=== PATIENT | female | born 1930 | race Caucasian/White ===

== ENCOUNTER 2018-01-16 18:58 | Emergency (ER) | payer OTHER, BC ==
[~2018-01-16] VITALS: Ht 149.9 cm; Wt 36.4 kg
[~2018-01-16 18:58] MED LIST: CARAFATE 11 GM/10 M1 PO
[2018-01-16] MEDS ORDERED: VALACYCLOVIR1000 MG PO (19:57)
[2018-01-16 20:28] VITALS: BP 157/101
== END 2018-01-16 22:49 | disposition home or self-care (01) ==
LOC: ER 18:58
DX: B02.9 Zoster without complications (principal); F03.90 Unspecified dementia, unspecified severity, without behavioral disturbance, psychotic disturbance, mood disturbance, and anxiety; Z90.710 Acquired absence of both cervix and uterus; Z90.89 Acquired absence of other organs

== ENCOUNTER 2018-10-06 01:49 | Inpatient (IN) | payer OTHER, BC ==
[~2018-10-06] VITALS: Ht 149.9 cm; Wt 45.8 kg
--- NOTE | ~2018-10-06 | EMS ---
[address] [address] EMS Patient Care Report Name: LYNNETTE SANTIAGO Room #: 204-P ADM IN M.R.#: [id number] Admission: 10/06/18 Attend Phys: Kira Baldwin MD Discharge: Date of : 32 Report #: [id number] THIS REPORT FOR: //name// Report Transmitted: 10/08/2018 10:43 EMS Care Summary [facility] MED-ACT Incident [id number] @ 10/06/2018 01:19 Incident Location [address] [place] [address] Patient LYNNETTE SANTIAGO Female, 88 Years 1930 Patient Address [address] [place] [address] Patient History Dementia, Patient Allergies Aricept, Patient Medications Lisinopril, Buspirone, Zofran, Trazodone, Alprazolam, Chief Complaint seizure and rigid posture. Disposition Transported No Lights/[place] Reason Convulsions/Seizure Transported To [facility] Narrative Upon arrival pt was sitting on a wheelchair, presented w/o distress. Caregiver reported she was helping the pt to the bathroom and then all of the pt started [address] [address] EMS Patient Care Report Name: LYNNETTE SANTIAGO Room #: 204-P [facility] IN .R.#: [id number] Admission: 10/06/18 Attend Phys: Kira Baldwin MD Discharge: Date of : 32 Report #: [id number] shaking and looking to the ceiling with rigid posture. RN reported pt normally used the walker and always talks and laughs. Pt's eyes deviated to the L side and she was ignoring crew on the right who tried to make her pay attention. Pt did squeezed on both hands, pt had painful upon IV insertion. Pt did not talked to the crew or react with any questions. RN reported pt had flu like symptoms yesterday morning and vomited once. Pt was prescribed PO zofran by the facility doctor. LVO did not apply to the pt because pt did not react with crew or answer any question. Initial Vitals @01:40P: 58,SpO2: 97, @01:36P: 66,R: 18,BP: 176/90,Pain: 0/10,SpO2: 96, @01:27P: 63,R: 16,BP: 186/95,Pain: 0/10,GCS: 10,Glucose: 163,SpO2: 97,Revised Trauma: 11,SD Suspected: false Assessments @01:28MENTAL:Other,SKIN:No Abnormalities,HEENT:Eyes: Left Pupil: 5-mm,Eyes: Right Pupil: 5-mm,Head/Face: No Abnormalities,Neck/Airway: No Abnormalities,LUNG SOUNDS:General: No Abnormalities,Left Upper: No Abnormalities,Right Upper: No Abnormalities,Left Lower: No Abnormalities,Right Lower: No Abnormalities,ABDOMEN:General: No Abnormalities,Left Upper: No Abnormalities,Right Upper: No Abnormalities,Left Lower: No Abnormalities,Right Lower: No Abnormalities,PELVIS//GI:No Abnormalities,EXTREMITIES:Left Arm: No Abnormalities,Right Arm: No Abnormalities,Left Leg: No Abnormalities,Right Leg: No Abnormalities,PULSE:NEURO:No Abnormalities,@01:40MENTAL:SKIN:HEENT:LUNG SOUNDS:General: No Abnormalities,Left Upper: No Abnormalities,Right Upper: No Abnormalities,Left Lower: No Abnormalities,Right Lower: No Abnormalities,ABDOMEN:General: No Abnormalities,Left Upper: No Abnormalities,Right Upper: No Abnormalities,Left Lower: No Abnormalities,Right Lower: No Abnormalities,PELVIS//GI:No Abnormalities,EXTREMITIES:PULSE:NEURO:Other, Impression Seizures Procedures @01:40Saline Lock 10cc (18 ga) Site: Antecubital-RightResponse: UnchangedSucceeded@01:3612-Lead ECG Timeline 01:18,Call Received 01:18,Psap Call 01:19,Dispatched 01:20,En Route 01:25,On Scene 01:27,At Patient [address] [address] EMS Patient Care Report Name: LYNNETTE SANTIAGO Room #: 204-P ADM IN M.R.#: [id number] Admission: 10/06/18 Attend Phys: Kira Baldwin MD Discharge: Date of : 32 Report #: [id number] 01:27,BP: 186/95 M,PULSE: 63,RR: 16 R,SPO2: 97 Ox,ETCO2: ,B,PAIN: 0,GCS: 10, 01:36,12-Lead ECG, 01:36,BP: 176/90 M,PULSE: 66,RR: 18 R,SPO2: 96 Ox,ETCO2: ,BG: ,PAIN: 0,GCS: , 01:38,Depart Scene 01:40,Saline Lock 10cc 18 ga Site: Antecubital-Right,Response: UnchangedSucceeded, 01:40,BP: / M,PULSE: 58,RR: R,SPO2: 97 Ox,ETCO2: ,BG: ,PAIN: ,GCS: , 01:44,At Destination 02:17,Call Closed Disclaimer v1.1 Copyright 2019 [employer] This EMS Care Summary contains data elements from the applicable legal record (which may be displayed differently). It is designed to provide pertinent information for the following purposes: continuity of care, clinical quality, and state data reporting. The complete legal record is available to ED staff and administrators of the receiving hospital in [employer]'s Patient Tracker. All data is provided "as is."
--- NOTE | ~2018-10-06 | EEG ---
[facility] [place] [address] ELECTROENCEPHALOGRAM Name: LYNNETTE SANTIAGO Room #: 204-P ADM IN M.R.#: [id number] Admission: 10/06/18 Attend Phys: Kira Baldwin MD Discharge: Date of : 32 Report #: [id number] THIS REPORT FOR: //name// CC: CHIRAG An Physician staff Kira Baldwin DATE OF SERVICE: 10/06/2018 This patient is being evaluated for altered mental status. EEG was done by placing the electrode by standard 10-20 system of electrode placement. Both referential and sequential montages were used for recording. Background activity in this patient's EEG is about 7 Hz and 30 microvolts. Photic stimulation was unremarkable. The EEG was slower on some points, but it is difficult to tell whether that is drowsiness or not. Photic stimulation is unremarkable. IMPRESSION: This is an abnormal EEG because it is poorly formed and disorganized. That is a nonspecific abnormality, which can occur with encephalopathy, dementia, effect of psychotropic medication, etc. Clinical correlation is recommended. No active epileptiform activity was noticed during this record. By: [id number] Grupo An MD /nt
[~2018-10-06 01:49] MED LIST changes: +VALACYCLOVIR1000 MG PO
[2018-10-06 02:06] VITALS: BP 191/88
[2018-10-06 02:28] LABS: ABSOLUTE NEUTROPHILS 6.3 thou/uL (1.4-8.2); BASOPHILS 0.2 % (0.0-2.0); HEMATOCRIT 31.8 % (37.0-47.0); HEMOGLOBIN 10.4 gm/dL (12.0-15.0); LYMPHOCYTES 9.5 % (24.0-44.0); MCHC 32.7 g/dL (28.0-37.0); MCV 76.5 fL (80.0-100.0); MONOCYTES 5.1 % (1.0-8.0); PLATELET COUNT 375 thou/uL (150-400); POLYS 85.2 % (36.0-66.0); RBC 4.16 mil/uL (4.20-5.00); RDW 14.7 % (10.5-14.5); WBC 7.4 thou/uL (4.0-11.0)
[2018-10-06 02:34] LABS: ANION GAP 9 mmol/L (7-16); BUN 17 mg/dL (7-18); CALCIUM 8.8 mg/dL (8.5-10.1); CHLORIDE 99 mmol/L (98-107); CO2 27 mmol/L (21-32); GLUCOSE 169 mg/dL (74-106); POTASSIUM 4.4 mmol/L (3.5-5.1); SODIUM 135 mmol/L (136-145)
[2018-10-06 02:39] LABS: PROTIME 10.4 Seconds (9.3-11.4)
[2018-10-06 02:44] LABS: ALBUMIN 3.3 g/dL (3.4-5.0); MAGNESIUM 2.1 mg/dL (1.8-2.4); SGOT 19 U/L (15-37); SGPT 18 U/L (30-65); TOTAL BILIRUBIN 0.3 mg/dL (<0.1-1.0); TOTAL PROTEIN 7.4 g/dL (6.4-8.2); TROPONIN-I <0.06 ng/mL (<0.06)
[2018-10-06 02:44] LABS: URINE BILIRUBIN NEGATIVE (Negative); URINE BLOOD 2+ (Negative); URINE CLARITY CLEAR; URINE COLOR YELLOW; URINE GLUCOSE-RANDOM* TRACE (Negative); URINE KETONES TRACE (Negative); URINE LEUKOCYTES-REFLEX NEGATIVE (Negative); URINE NITRITE-REFLEX NEGATIVE (Negative); URINE PROTEIN (DIPSTICK) 1+ (Negative); URINE UROBILINOGEN 0.2 E.U./dl (0.2-1.0)
[2018-10-06 02:54] LABS: BACTERIA-REFLEX 1-9 Few /HPF (None Seen); CASTS None Seen /LPF (None Seen); CRYSTALS None Seen /LPF (None Seen); MUCUS None Seen strn/LPF (None Seen); SQUAMOUS None Seen /LPF (0-3); URINE RBC 3-10 Few /HPF (0-2); URINE WBC-REFLEX 0-5 Rare /HPF (0-5)
[2018-10-06 04:42] VITALS: BP 181/85
[2018-10-06 05:25] VITALS: BP 179/84
[2018-10-06 07:20] VITALS: BP 138/68; BP 168/68
--- NOTE | 2018-10-06 07:26 | NUR ---
RECEIVED REPORT FROM [place] JACOBS RN.PT ARRIVED TO ROOM 204 AROUND 0525 AM ACCOMPANIED BY HER SISTER WHO IS HER DPOA.PT SLEEPY BUT ALERT WHEN STIMULATED.NONVERBAL.CONFUSED.TRYING TO GET OUT OF BED.MONITOR SHOWS SINUS EMMA/SINUS RHYTHM.BED ALARM IS ON.INCONTINENT.TURN Q2 HOURS.WILL MONITOR AND CONTINUE POC.
[2018-10-06 09:01] VITALS: BP 179/88
[2018-10-06] MEDS ORDERED: BUSPIRONE HCL10 MG (09:44)
[2018-10-06] MEDS ORDERED: XANAX 0.5 MG0.5 MG (09:44)
[2018-10-06] MEDS ORDERED: VITAMIN B-12500 MCG PO (09:45)
[2018-10-06] MEDS ORDERED: DIFLUCAN50 MG PO (09:45)
[2018-10-06] MEDS ORDERED: HYDROXYZINE HCL25 M1 PO (09:46)
[2018-10-06] MEDS ORDERED: LOPERAMIDE 2 MG2 M1 PO (09:47)
[2018-10-06] MEDS ORDERED: LISINOPRIL2.5 MG PO (09:47)
--- NOTE | 2018-10-06 09:47 | EKG ---
[address] [place] [address] ELECTROCARDIOGRAM REPORT Name: LYNNETTE SANTIAGO Room #: 204-P ADM IN M.R.#: [id number] Admission: 10/06/18 Attend Phys: Kira Baldwin MD Discharge: Date of : 34 Report #: [id number] THIS REPORT FOR: //name// [facility] ED Test Date: 2018-10-06 Test Time: 02:26:28 Pat Name: LYNNETTE SANTIAGO Department: Room: [facility] Gender: F Mechanical Service Specialist: NAZARIO : 1930 Requested By: Sylvain Dye Order Number: [id number] MD: Mauri Enamorado Measurements Intervals [place] Rate: 56 P: 51 DC: 113 QRS: 82 QRSD: 89 T: 61 QT: 494 QTc: 477 Interpretive Statements Sinus bradycardia Otherwise no significant abnormality No previous ECG available for comparison Electronically Signed On 10-06-2018 9:46:54 CDT by Mauri Enamorado [email or web address] <ELECTRONICALLY SIGNED> By: Mauri Enamorado MD, [facility] 10/06/18 [id number] [id number] Mauri Enamorado MD, FACC /EPI
[2018-10-06] MEDS ORDERED: MILK OF MA400 MG/5 M PO (09:48)
[2018-10-06] MEDS ORDERED: OXYBUTYNIN 5 MG5 M2 PO (09:48)
[2018-10-06] MEDS ORDERED: SEROQUEL 25 MG25 M1 PO (09:49)
[2018-10-06] MEDS ORDERED: EXELON1 EAC1 TRANSDERM (09:49)
[2018-10-06] MEDS ORDERED: TRAZODONE HCL50 MG PO (09:50)
[2018-10-06] MEDS ORDERED: TRAZODONE HCL50 MG (09:51)
--- NOTE | 2018-10-06 10:50 | NUR ---
Patient admits from [facility] with AMS. Sister DPYOLA at bedside. She reports patient with N/V wasnt herself. She reports some days she does really well and ambulates with walker and other days she needs more assistance. Plan return to facility once stable. Sp with Lisa at [facility]. plan to update facility with faxing H/P pertinent information.
--- NOTE | 2018-10-06 14:00 | NUR ---
ASSUMED CARE AT 0700, SHIFT ASSESSMENT DONE, DISORIENTED, NON-VERBAL, SISTER AT BEDSIDE THIS AM. MED LIST OBTANIED FROM [facility], MED REC DONE, HOME MEDS STARTED. SPEEECH, PT AND OT EVALUATION DONE. MRI OF THE HEAD ORDERED, WENT FOR MRI AT 1330. RECEIVING IV FLUIDS. ICONTINET OF BOWEL AND BLADDER. REMAINS ON ROOM AIR. WILL CONTINUE TO ASSESS AND ASSIST WITH ADLs NEEDED.
--- NOTE | 2018-10-06 14:36 | NUR ---
PT RESIDES AT [facility]. FAXED CLINICAL UPDATE TO FACILITY SPOKE WITH OSCAR IN ADM HE RECEIVED UPDATE. DCP TO FOLLOW.
[2018-10-06 20:23] VITALS: BP 140/80
[2018-10-07] VITALS (7 sets, daily range): BP systolic 135–192; BP diastolic 68–98
--- NOTE | 2018-10-07 05:05 | NUR ---
ASSUMED PT CARE AROUND 1900. PT IS ABLE TO FOLLOW SIMPLE COMMANDS LIKE SQUEEZE HANDS OR ASSIST WITH TURNING SELF IN BED. SHE HAS BEEN NONVERBAL EXCEPT FOR MAKING ONE SHORT STATEMENT THIS MORNING. INCONTINENT OF URINE. REPOSITIONED TO PREVENT SKIN BREAKDOWN. FALL PRECAUTIONS IN PLACE. PT SLEPT MOST OF THE NIGHT. RESP EVEN AND UNLABORED. NOT PROGRESSING WELL TOWARD POC GOALS.
[2018-10-07 13:37] LABS: % SATURATION 11 % (20-39); IRON 41 ug/dL (50-170); TIBC 381 ug/dL (250-450)
[2018-10-07 14:42] LABS: FOLIC ACID 21.8 ng/mL (8.6-58.9)
--- NOTE | 2018-10-07 18:49 | NUR ---
ASSUMED PATIENT CARE AT 0700. ALERT. CONFUSED. FOLLOW SOME OF COMMAND. ABLE TO TALK A FEW WORDS. PROGRESSING TOWARDS POC GOALS,
--- NOTE | 2018-10-08 03:09 | NUR ---
ASSUMED PT CARE AT 1900. PT CONFUSED, AND RESTLESS IN BED. BED ALARM ACTIVATED, FALL PRECAUTIONS IN PLACE, CLOSE TO NURSING STATION FOR CLOSE MONITORING. NO COMPLAINTS OF PAIN. FREQUENT CHECKS REINFORCED. PT UNABLE TO VERBALIZE CONCERNS. DID NOT GET MUCH SLEEP THROUGH THE NIGHT. AWAKE MOST OF NIGHT. PROGRESSING TOWARD PLAN OF CARE. WILL CONTINUE TO MONITOR.
[2018-10-08 04:46] VITALS: BP 171/95
[2018-10-08 05:13] LABS: HEMATOCRIT 33.3 % (37.0-47.0); HEMOGLOBIN 10.7 gm/dL (12.0-15.0); MCH 24.8 pg (26.0-34.0); MCV 77.4 fL (80.0-100.0); RBC 4.31 mil/uL (4.20-5.00); RDW 15.4 % (10.5-14.5); WBC 7.7 thou/uL (4.0-11.0)
[2018-10-08 05:37] LABS: CALCIUM 8.3 mg/dL (8.5-10.1); CREATININE 0.9 mg/dL (0.6-1.0); MAGNESIUM 1.9 mg/dL (1.8-2.4); TOTAL BILIRUBIN 0.2 mg/dL (<0.1-1.0); TOTAL PROTEIN 6.7 g/dL (6.4-8.2)
[2018-10-08 07:52] VITALS: BP 152/83
[2018-10-08 11:18] VITALS: BP 189/100
[2018-10-08] MEDS ORDERED: HYDRALAZINE 10M10 MG PO (13:44)
[2018-10-08] MEDS ORDERED: BUSPIRONE HCL5 MG PO (13:44)
[2018-10-08 13:46] VITALS: BP 189/100
--- NOTE | 2018-10-08 13:49 | NUR ---
PT CLEARED FOR DC BACK TO THE [facility] AT [facility]. PT'S SISTER UPDATED. [facility] HAS ARRANGED A W/C VAN AT 3:30. HH THERAPY F/U RECOMMENDED. ANGELES THE DIRECTOR AT [facility] IS HERE VISITING AND REASSESSING THE PT FOR HER RETURN TODAY. SHE HAS BEEN UP WITH A RWALKER THERE ON SOME DAYS AND IN A W/C OTHERS. SHE IS MORE ALERT AND INTERACTIVE TODAY AND TOLERATING PO DIET. ST REEVALING DIET RECOMMENDATIONS. CARE TEAM RECOMMENDATIONS ARE FOR CONTINUED PT/OT/ST AT THE [facility]. THEY WILL ARRANGE PER [facility]. CHART COPY AND ORDERS TO BE SENT WITH THE PT. PT'S SISTER IS AGREEABLE TO THE DC PLAN. CARE TEAM UPDATED. DC TO [facility] WITH HH.
[2018-10-08] MEDS ORDERED: ASPIRIN325 PO (14:07)
[2018-10-08 15:05] VITALS: BP 167/89
--- NOTE | 2018-10-08 15:07 | NUR ---
FAXED DC ORDERS/SUMMARY TO [facility] SPOKE WITH MICHELLE IN ADM SHE RECEIVED DC ORDERS ALSO FAXED DC ORDERS TO [facility] SPOKE WITH IDALIA IN INTAKE SHE RECEIVED DC ORDERS AND LET HER KNOW THAT [facility] WILL BE NOTIFYING HER WELL.
--- NOTE | 2018-10-08 15:15 | NUR ---
ASSESSMENT CHARTED. PT ALERT AND ORIENTED TO SELF. APPETITE GOOD. CONSUMED 100% OF BREAKFAST AND LUNCH. FALL PRECAUTION ENFORCED. SEEN BY DR. HINES. ORDERS GIVEN TO DISCHARGE PT TO HOME WITH HH.
== END 2018-10-08 15:18 | disposition home health service (06) | DRG 304 ==
LOC: ER 01:49 → EROBS 04:42 → 2N 04:42
PROVIDERS: Emergency Medicine; Internal Medicine; Nurse Practitioner Family; ADMIT Internal Medicine
DX: I16.0 Hypertensive urgency (principal); G92 Toxic encephalopathy; R47.01 Aphasia; F03.90 Unspecified dementia, unspecified severity, without behavioral disturbance, psychotic disturbance, mood disturbance, and anxiety; I10 Essential (primary) hypertension; N32.81 Overactive bladder; G47.00 Insomnia, unspecified; E53.8 Deficiency of other specified B group vitamins; D50.9 Iron deficiency anemia, unspecified; Z90.710 Acquired absence of both cervix and uterus; Z79.899 Other long term (current) drug therapy
CPT/HCPCS: 10081

== ENCOUNTER 2019-02-02 19:52 | Emergency (ER) | payer OTHER, BC ==
[~2019-02-02] VITALS: Ht 157.5 cm; Wt 45.4 kg
[~2019-02-02 19:52] MED LIST changes: +ASPIRIN325 PO; +BUSPIRONE HCL10 MG; +BUSPIRONE HCL5 MG PO; +DIFLUCAN50 MG PO; +EXELON1 EAC1 TRANSDERM; +HYDRALAZINE 10M10 MG PO; +HYDROXYZINE HCL25 M1 PO; +LISINOPRIL2.5 MG PO; +LOPERAMIDE 2 MG2 M1 PO; +MILK OF MA400 MG/5 M PO; +OXYBUTYNIN 5 MG5 M2 PO; +SEROQUEL 25 MG25 M1 PO; +TRAZODONE HCL50 MG; +TRAZODONE HCL50 MG PO; +VITAMIN B-12500 MCG PO; +XANAX 0.5 MG0.5 MG
[2019-02-02 21:50] LABS: ABSOLUTE NEUTROPHILS 5.3 thou/uL (1.4-8.2); BASOPHILS 0.5 % (0.0-2.0); EOSINOPHILS 1.6 % (0.0-3.0); HEMATOCRIT 28.1 % (37.0-47.0); HEMOGLOBIN 8.7 gm/dL (12.0-15.0); LYMPHOCYTES 22.9 % (24.0-44.0); MCH 26.2 pg (26.0-34.0); MCHC 31.1 g/dL (28.0-37.0); MCV 84.4 fL (80.0-100.0); MONOCYTES 6.2 % (1.0-8.0); PLATELET COUNT 349 thou/uL (150-400); POLYS 68.8 % (36.0-66.0); RBC 3.33 mil/uL (4.20-5.00); RDW 14.5 % (10.5-14.5); WBC 7.7 thou/uL (4.0-11.0)
[2019-02-02 21:59] LABS: CALCIUM 8.8 mg/dL (8.5-10.1); CREATININE 1.2 mg/dL (0.6-1.0); POTASSIUM 4.7 mmol/L (3.5-5.1)
[2019-02-02 22:06] LABS: ALBUMIN 3.7 g/dL (3.4-5.0); TOTAL BILIRUBIN 0.3 mg/dL (<0.1-1.0); TOTAL PROTEIN 7.3 g/dL (6.4-8.2)
[2019-02-02 23:49] LABS: URINE BILIRUBIN NEGATIVE (Negative); URINE BLOOD NEGATIVE (Negative); URINE CLARITY CLEAR; URINE COLOR YELLOW; URINE GLUCOSE-RANDOM* NEGATIVE (Negative); URINE KETONES NEGATIVE (Negative); URINE LEUKOCYTES-REFLEX NEGATIVE (Negative); URINE PROTEIN (DIPSTICK) TRACE (Negative); URINE SPECIFIC GRAVITY >= 1.030 (1.005-1.035); URINE UROBILINOGEN 0.2 E.U./dl (0.2-1.0)
[2019-02-02 23:50] LABS: URINE NITRITE-REFLEX POSITIVE (Negative)
[2019-02-03] MEDS ORDERED: KEFLEX500 M1 PO (00:04)
[2019-02-03 00:16] LABS: BACTERIA-REFLEX 1-9 Few /HPF (None Seen); HYALINE CASTS 4-10 Moderate /LPF (None Seen); MUCUS 0-3 Light strn/LPF (None Seen); SQUAMOUS 4-10 Moderate /LPF (0-3); URINE RBC 3-10 Few /HPF (0-2); URINE WBC-REFLEX 6-15 Few /HPF (0-5)
[2019-02-03 00:17] LABS: CRYSTALS None Seen /LPF (None Seen)
[2019-02-03 01:00] VITALS: BP 129/90
== END 2019-02-03 01:55 | disposition home or self-care (01) ==
LOC: ER 19:52
PROVIDERS: Physician Assistant
DX: S01.81XA Laceration without foreign body of other part of head, initial encounter (principal); I10 Essential (primary) hypertension; F03.90 Unspecified dementia, unspecified severity, without behavioral disturbance, psychotic disturbance, mood disturbance, and anxiety; Z90.710 Acquired absence of both cervix and uterus; Z90.89 Acquired absence of other organs; Z79.899 Other long term (current) drug therapy; Z79.82 Long term (current) use of aspirin; W18.30XA Fall on same level, unspecified, initial encounter; Y93.89 Activity, other specified; Y92.128 Other place in nursing home as the place of occurrence of the external cause; Y99.9 Unspecified external cause status

== ENCOUNTER 2019-12-03 12:08 | Emergency (ER) | payer OTHER, BC ==
[~2019-12-03] VITALS: Ht 157.5 cm; Wt 56.7 kg
--- NOTE | ~2019-12-03 | EMS ---
[facility] [address] [place] [address] EMS Patient Care Report Name: LYNNETTE SANTIAGO Room #: REG DAVIDSON Diamond#: [id number] Admission: 12/03/19 Attend Phys: Discharge: Date of : 32 Report #: [id number] THIS REPORT FOR: //name// Report Transmitted: 12/03/2019 13:18 EMS Care Summary [facility] MED-ACT Incident [id number] @ 12/03/2019 11:35 Incident Location [address] [place] [address] Patient LYNNETTE SANTIAGO Female, 89 Years 1930 Patient Address [address] [place] [address] Patient History Dementia,Hypertension (HTN),Alzheimer's,Back Pain (Chronic),Cellulitis, Patient Allergies Aricept, Patient Medications Atropine, Lisinopril, Seroquel, Morphine, Ativan, Buspirone, Senna, Tramadol, Trazodone, Lorazepam, Acetaminophen, Tylenol, Chief Complaint Head laceration Disposition Transported No Lights/[place] Reason Falls Transported To [facility] Narrative INITIAL: Patient found sitting in her reclining wheelchair in the hallway of [facility] [address] [place] [address] EMS Patient Care Report Name: LYNNETTE SANTIAGO Room #: REG Lobo#: [id number] Admission: 12/03/19 Attend Phys: Discharge: Date of : 32 Report #: [id number] her half-way. HPI: The patient was non-verbal and did not follow commands. She tracked responders with her eyes. Nursing staff reported that this is normal and they saw no changes in her mentation. Due to this, the patient was unable to provide history. Nursing staff reported that the patient frequently fall from her chair when she tries to climb out of it. They said that she frequently hits her head. They said she does not take blood thinners. They said that the patient did not have a hospital preference on file and should be transported to the closest facility. They believed that she had been to [facility] in the past. The patient seemed to be responsive to pain and did not moan or indicate discomfort on palpation of her neck. PLAN: Vitals, history, assessment, bandaging. Moved patient to cot and moved to back of ambulance. Transported non-emergency to [facility]. Patient remained stable during transport. Transferred patient to ER nurse in room 3. Initial Vitals @12:00P: 87,R: 16,BP: 133/82,GCS: 10,SpO2: 95,Revised Trauma: 11,NC Suspected: false @11:55P: 85,R: 16,BP: 135/85,GCS: 10,SpO2: 95,Revised Trauma: 11,NC Suspected: false @12:04P: 86,R: 16,BP: 126/82,GCS: 10,SpO2: 97,Revised Trauma: 11,NC Suspected: false Assessments @11:46MENTAL:Other,SKIN:HEENT:Head/Face: Other,LUNG SOUNDS:ABDOMEN:PELVIS//GI:EXTREMITIES:Left Arm: Other,PULSE:Radial: 2+ Normal,NEURO: Impression Injury of Head Procedures @11:48BandagingResponse: ImprovedSucceeded Timeline 11:34,Call Received 11:34,Psap Call 11:35,Dispatched 11:36,En Route 11:43,On Scene 11:45,At Patient 11:48,Bandaging,Response: ImprovedSucceeded, 11:55,BP: 135/85 M,PULSE: 85,RR: 16 R,SPO2: 95 Ox,ETCO2: ,BG: ,PAIN: ,GCS: 10, 11:58,Depart Scene [address] [address] EMS Patient Care Report Name: LYNNETTE SANTIAGO Room #: [facility].#: [id number] Admission: 12/03/19 Attend Phys: Discharge: Date of : 32 Report #: [id number] 12:00,BP: 133/82 M,PULSE: 87,RR: 16 R,SPO2: 95 Ox,ETCO2: ,BG: ,PAIN: ,GCS: 10, 12:04,BP: 126/82 M,PULSE: 86,RR: 16 R,SPO2: 97 Ox,ETCO2: ,BG: ,PAIN: ,GCS: 10, 12:05,At Destination 12:26,Call Closed Disclaimer v1.1 Copyright 2020 [employer] This EMS Care Summary contains data elements from the applicable legal record (which may be displayed differently). It is designed to provide pertinent information for the following purposes: continuity of care, clinical quality, and state data reporting. The complete legal record is available to ED staff and administrators of the receiving hospital in [employer]'s Patient Tracker. All data is provided "as is."
[~2019-12-03 12:08] MED LIST changes: +KEFLEX500 M1 PO
[2019-12-03 13:49] VITALS: BP 143/88
== END 2019-12-03 13:49 ==
LOC: ER 12:08
DX: S01.111A Laceration without foreign body of right eyelid and periocular area, initial encounter (principal); F03.90 Unspecified dementia, unspecified severity, without behavioral disturbance, psychotic disturbance, mood disturbance, and anxiety; I10 Essential (primary) hypertension; Z90.711 Acquired absence of uterus with remaining cervical stump; Z90.89 Acquired absence of other organs; Z79.2 Long term (current) use of antibiotics; Z79.899 Other long term (current) drug therapy; Z79.82 Long term (current) use of aspirin; Z88.8 Allergy status to other drugs, medicaments and biological substances; W07.XXXA Fall from chair, initial encounter; Y93.89 Activity, other specified; Y92.128 Other place in nursing home as the place of occurrence of the external cause; Y99.8 Other external cause status